=== PATIENT | male | born 1995 | race African-American/Black ===

== ENCOUNTER 2018-12-12 11:40 | Inpatient (IN) | payer MEDICAID ==
[~2018-12-12] VITALS: Ht 177.8 cm; Wt 60.3 kg
--- NOTE | 2018-12-12 12:00 | NUR ---
The patient is reluctant to be seen by the ED provider; the patient's brother wants him to be seen by the ED physician.
--- NOTE | 2018-12-12 12:38 | NUR ---
the patient and his brother are talking to each other
--- NOTE | 2018-12-12 12:53 | NUR ---
MD AT BEDSIDE. ROOM MATE BROUGHT PATIENT IN. LONG HISTORY OF POSSIBLE MENTAL DISORDER, RECENT REFUSAL TO EAT AND WEIGHT LOSS AND PER ROOM MATE SINCE THE LAST 3-4 DAYS HE HAS STOPPED TALKING MOSTLY, WILL INTERMITTENTLY FOLLOW COMMANDS, VERY FIDGITY, AWOL RISK.
[2018-12-12] MEDS ORDERED: OLANZAPINE 10 MG VIAL IM ONE ×2 (12:56→13:00)
[2018-12-12] MEDS ORDERED: LORAZEPAM INJ 2 MG/ML VIAL ONE (12:57)
[2018-12-12] MEDS ORDERED: LORAZEPAM INJ 2 MG/ML VIAL IM ONE (13:00)
--- NOTE | 2018-12-12 13:00 | NUR ---
PATIENT ABLE TO TELL ME HIS NAME, , AND THAT HE IS IN THE HOSPITAL. AWARE HIS FRIEND IS AT BEDSIDE BUT UNABLE TO TELL ME HIS NAME. PATIENT COOPERATIVE AND INTERMITTENTLY RESPONDS. FOLLOWS SIMPLE COMMANDS OF REQUESTS TO BLINK, SQUEEZE HANDS AND MOVE EXTREMITIES
--- NOTE | 2018-12-12 13:00 | NUR ---
PATIENT AGREEABLE TO HAVE ZYPREZA AND ATIVAN GIVEN. SECURITY AT BEDSIDE FOR ASSISTANCE
[2018-12-12 13:23] LABS: BASOPHILS % (AUTO) 0.5 % (0.0-2.0); HEMATOCRIT 46 % (39-51); HEMOGLOBIN 15.2 g/dL (13.5-17.5); LYMPHOCYTES % (AUTO) 15.3 % (20.0-44.0); MEAN CORPUSCULAR HGB CONC 33 g/dl (31.0-36.0); MEAN CORPUSCULAR VOLUME 91 fL (80-96); MONOCYTES # (AUTO) 0.8 /CMM (0.1-1.30); MONOCYTES % (AUTO) 12.4 % (2.0-12.0); NEUTROPHILS # (AUTO) 4.5 /CMM (1.8-8.9); NEUTROPHILS % (AUTO) 71.8 % (43.0-81.0); PLATELET COUNT (AUTO) 213 /CMM (150-450); RED BLOOD CELL COUNT(AUTO) 5.02 MIL/uL (4.5-6.0); WHITE BLOOD COUNT (AUTO) 6.3 K/uL (4.3-11.0)
--- NOTE | 2018-12-12 13:25 | NUR ---
PATIENT TAKEN TO CT
[2018-12-12 13:28] LABS: CALCIUM, SERUM 10.1 mg/dL (8.5-10.1); CARBON DIOXIDE 22 mmol/L (21-32); CHLORIDE 100 mmol/L (98-107); CREATININE 1.2 mg/dL (0.6-1.3); GLUCOSE 77 mg/dL (74-106); POTASSIUM 4.5 mmol/L (3.5-5.1); SODIUM SERUM 141 mmol/L (136-145); UREA NITROGEN, BLOOD 15 mg/dL (7-18)
--- NOTE | 2018-12-12 13:30 | NUR ---
PATIENT RETURNED FROM CT SCAN. CALM AND COOPERATIVE. VSS. RESTING
[2018-12-12 13:34] LABS: ACETAMINOPHEN 0 ug/ml (10-30); ALANINE AMINOTRANSFERASE 41 U/L (12-78); ALBUMIN 5.2 g/dL (3.4-5.0); ALCOHOL, BLOOD < 3 mg/dL (0-0); ALKALINE PHOSPHATASE 44 U/L (46-116); ASPARTATE AMINOTRANSFERASE 64 U/L (15-37); BILIRUBIN,DIRECT 0.3 mg/dL (0.0-0.2); BILIRUBIN,TOTAL 1.3 mg/dL (0.2-1.0); SALICYLATE 3.6 mg/dL (2.8-20.0)
--- NOTE | 2018-12-12 14:16 | NUR ---
FRIEND AT BEDSIDE -DOMI SAINI [phone] FATHER AMAURI HIGGINBOTHAM [phone]
--- NOTE | 2018-12-12 15:21 | NUR ---
PATIENT COMPLIANT AND PROVIDED URINE SAMPLE
[2018-12-12 15:33] LABS: APPEARANCE,URINE Clear (CLEAR); BILIRUBIN,URINE MODERATE (NEGATIVE); BLOOD, URINE Trace-intact Ery/uL (NEGATIVE); COLOR,URINE Yellow (YELLOW); KETONES,URINE >=160 (NEGATIVE); LEUKOCYTE ESTERASE ,URINE Negative (NEGATIVE); NITRITE, URINE Negative (NEGATIVE); PROTEIN,URINE 30 mg/dl (NEGATIVE); UGLUCOSE Negative (NEGATIVE)
[2018-12-12 15:39] LABS: BACTERIA,URINE None seen /HPF (None Seen); RBC,URINE 0-2 /HPF (0-2); SQUAMOUS EPITHELIAL CELL,UR Few /HPF (None Seen); WBC,URINE 0-2 /HPF (0-3)
--- NOTE | 2018-12-12 16:20 | NUR ---
per patient ok to speak with parents gail. [phone]
--- NOTE | 2018-12-12 18:34 | NUR ---
PATIENT RESTING COMFORTABLY. NO CHANGE IN MENTATION. SLOW TO RESPOND
--- NOTE | 2018-12-12 20:00 | NUR ---
Patient is resting comfortably in bed with eyes closed. Easily aroused. VSS.
--- NOTE | 2018-12-12 21:12 | NUR ---
CALLED [facility] FOR EVAL [phone], UNABLE TO LEAVE AT THIS TIME. WILL FOLLOW UP.
--- NOTE | 2018-12-12 21:34 | NUR ---
PAGED DR RAMOS SECOND TIME
--- NOTE | 2018-12-12 23:05 | NUR ---
ART WAIT STAFF CALLED, WILL COME
--- NOTE | 2018-12-12 23:20 | NUR ---
ART, TRAVELING SALES REPRESENTATIVE AT BEDSIDE
--- NOTE | 2018-12-13 00:22 | NUR ---
ROOMMATES AT BEDSIDE
--- NOTE | 2018-12-13 01:08 | NUR ---
CALLED [facility] FOR PANEL ADMISSION, DR. CHIQUIS SEARS, WAITING FOR CALL BACK.
--- NOTE | 2018-12-13 01:25 | NUR ---
CALLED RN SUP FOR TELE BED
--- NOTE | 2018-12-13 01:29 | NUR ---
FRANKIE PATRICIO SPOKE TO DR. SIM REGARDING PLAN OF CARE/ ADMISSION
[2018-12-13] MEDS ORDERED: IV NS 0.9% 1,000 ML BAG IV ONE (01:30)
--- NOTE | 2018-12-13 01:58 | NUR ---
PT ASSIGNED TO 320-1
[2018-12-13] MEDS ORDERED: MAG HYDROX/AL HYDROX/SIMETH 30 ML UDC PO PRN (02:00)
[2018-12-13] MEDS ORDERED: ONDANSETRON HCL/PF 4 MG/2 ML VIAL IVP PRN (02:00)
[2018-12-13] MEDS ORDERED: ACETAMINOPHEN 325 MG TABLET PO PRN (02:00)
[2018-12-13] MEDS ORDERED: MAGNESIUM HYDROXIDE 30 ML UDC PO PRN (02:00)
--- NOTE | 2018-12-13 02:09 | NUR ---
REPORT GIVEN TO MARCIAL BURKETT FOR LYNN
[2018-12-13 03:15] VITALS: BP 144/79
[2018-12-13 03:25] VITALS: BP 144/79
--- NOTE | 2018-12-13 03:25 | NUR ---
RN MS ADMITTING OPENING NOTES RECEIVED PATIENT FROM ER VIA GURNEY SAFELY TRANSFERRED TO BED, AWAKE ALERT AND ORIENTED X3, ABLE TO MAKE SIMPLE NEEDS KNOWN, NOTED WITH DELAYED SPEECH, RESPIRATIONS EVEN AND UNLABORED WITH EQUAL RISE AND FALL OF CHEST, VERONICA ANY PAIN OR DISCOMFORT AT THIS TIME, IV SITE TO LEFT FA #20 G INTACT AND PATENT, NO REDNESS, NO INFILTRATION , BODY ASSESSMENT DONE SKIN INTACT, BELONGINGS DONE, PATIENT HAS PHONE AND NUTRIENT MANAGEMENT SPECIALIST WIRE HOWEVER DID NOT RECEIVED WITH CHARGING CONNECTIN BOX, PATIENT DECIDE TO KEEP WALLET AT BEDSIDE WITH REST OF BELONGINGS, FLUIDS OFFERED, TOILETING OFFERED , URINAL AT BEDSIDE AND ORIENTED , ORIENTED TO STAFF AND CALL LIGHT AND KEPT WITHIN REACH,SAFETY PRECAUTIONS IN PLACE, LOW BED AND LOCKED, BED ALARM IN PLACE FOR AMS. ALL NEEDS ATTENDED WILL CONTINUE TO MONITOR AND ATTEND TO NEEDS, WILL FOLLOW MD ORDERS.
--- NOTE | 2018-12-13 06:15 | NUR ---
RN MS CLOSING NOTES PATIENT IN BED,SLEEPING BUT EASILY AROUSABLE, AWAKE ALERT AND ORIENTED X3, ABLE TO MAKE SIMPLE NEEDS KNOWN, NOTED WITH DELAYED SPEECH, RESPIRATIONS EVEN AND UNLABORED WITH EQUAL RISE AND FALL OF CHEST, VERONICA ANY PAIN OR DISCOMFORT AT THIS TIME, IV SITE TO LEFT FA #20 G INTACT AND PATENT, NO REDNESS, NO INFILTRATION , FLUIDS OFFERED, TOILETING OFFERED , URINAL REMAINS BEDSIDE , CALL LIGHT KEPT WITHIN REACH,SAFETY PRECAUTIONS IN PLACE, LOW BED AND LOCKED, BED ALARM IN PLACE FOR AMS. ALL NEEDS ATTENDED WILL CONTINUE TO MONITOR AND ATTEND TO NEEDS, WILL ENDORSE TO NEXT SHIFT.
[2018-12-13 08:00] VITALS: BP 135/62
[2018-12-13 08:39] VITALS: BP 135/62
[2018-12-13] MEDS: PANTOPRAZOLE 40 MG TABLET.DR PO SCH (08:52)
--- NOTE | 2018-12-13 11:00 | NUR ---
PATIENT RESTING IN ROOM . DENIES ANY PAIN OR DISCOMFORT AT THIS TIME, NO SOB OR CHEST PAIN . ON ROOM AIR TOLERATING WELL. DENIES ANY SUICIDAL THOUGHTS AT THIS TIME
--- NOTE | 2018-12-13 11:20 | NUR ---
Psych consult at bedside by Dr. Guerra
--- NOTE | 2018-12-13 11:45 | NUR ---
Social service consult requested by MARCOS Ruiz for possible drug overdose. Pt. is a 23 year old male who was admitted to [facility] for altered mental status and possible drug overdose. Pt. was brought in by his roommates. SW met with pt. bedside. Pt. is alert and oriented x 4. Pt. displays a subdued mood and is soft spoken but engaging in conversation with SW. Pt. states he lives with roommates at [address] in [place]. Per H&P notes, his roommates had found white powder on his bed and on the floor. SW asked about the white substance, but pt.pretended like he did not know what it was. Pt. states he uses THC on a daily basis. Pt. was evaluated by marine diesel technician Art who stated in his report heidy tpt. has been going to Cocaine and Crack parties recently and has not been himself for the past four days. Pt. has lost a lot of weight. However, Pt. is denying drug and alcohol use and not upfront about his drug use. Pt's family is coming from [place] to visit him. Pt. currently works for a [employer]. Pt. states he has Depression and Anxiety, however is not taking any medications. Pt. denies any suicidal and homicidal ideations at this time. Pt. does not have a psychiatrist. [facility]OT gave pt. the following mental health resources: [facility] [address], [address]nd [place] [address] Main Number: [facility] [address] [place] [address] HOURS: Mon-Fri 8am--7pm Saturdays 9am--5:30pm [facility] [place], [place] [id number] No other social service needs are requested at this time. SW is available, if needed.
[2018-12-13 16:03] VITALS: BP 141/88
--- NOTE | 2018-12-13 19:15 | NUR ---
MS RN OPENING NOTES: RECEIVED PATIENT SITTING AT THE EDGE OF THE BED,CALM. NO COMPLAIN OF PAIN. CALL LIGHT WITHIN REACH. PATIENT IS ALERT AND ORIENTED X4.
--- NOTE | 2018-12-13 19:33 | NUR ---
PATIENT RESTING IN ROOM, A/O X 3. SPEECH REMAINS DELAYED. VS ARE MARISOL ON ROOM AIR. AWAITING FOR PARENTS FOR D/C . POSSIBLE D/C TONIGHT OR TOMORROW . WILL ENDORSE TO NEXT SHIFT FOR LYNN.
[2018-12-13 20:00] VITALS: BP 141/90
--- NOTE | 2018-12-14 02:30 | NUR ---
YOSELIN GIBBS REPORTED THAT 2 ROOMMATES OF THE PATIENT TOOK THE PATIENT'S BLACK BACKPACK EARLIER, CN PANDA AWARE.
--- NOTE | 2018-12-14 06:00 | NUR ---
MS RN CLOSING NOTES: PATIENT JUST HAD SHOWER ACCORDING TO THE SCREEN TENDER. PATIENT IS SITTING AT THE EDGE OF THE BED. NO COMPLAIN OF PAIN. PATIENT IS QUIET AND CALM MOST OF THE TIME. AFEBRILE. NO ACUTE EVENTS OVERNIGHT.STILL WAITING FOR THE PARENTS TO COME. D/C PACKET ALREADY PREPARED AND NEED TO BE SIGNED BY PATIENT, ENDORSED TO THE NEXT SHIFT RN.
[2018-12-14 07:25] LABS: BASOPHILS % (AUTO) 0.9 % (0.0-2.0); EOSINOPHILS % (AUTO) 0.5 % (0.0-6.0); HEMATOCRIT 48 % (39-51); HEMOGLOBIN 15.7 g/dL (13.5-17.5); LYMPHOCYTES % (AUTO) 23.3 % (20.0-44.0); MEAN CORPUSCULAR HGB CONC 33 g/dl (31.0-36.0); MEAN CORPUSCULAR VOLUME 90 fL (80-96); MONOCYTES # (AUTO) 0.6 /CMM (0.1-1.30); MONOCYTES % (AUTO) 14.7 % (2.0-12.0); NEUTROPHILS # (AUTO) 2.6 /CMM (1.8-8.9); NEUTROPHILS % (AUTO) 60.6 % (43.0-81.0); PLATELET COUNT (AUTO) 230 /CMM (150-450); RED BLOOD CELL COUNT(AUTO) 5.33 MIL/uL (4.5-6.0); WHITE BLOOD COUNT (AUTO) 4.3 K/uL (4.3-11.0)
--- NOTE | 2018-12-14 07:30 | NUR ---
m/s back joiner: initial assessment received pt in bed awake, a/o4. denies si/hi at this time. pt for d'c home today, awaiting for family from [place] to pick him up per report. pt has no iv/hl at this time. no c/o pain or any discomfort. breakfast served. instructed to call for assistance. will monitor.
[2018-12-14 07:44] LABS: CALCIUM, SERUM 9.2 mg/dL (8.5-10.1); MAGNESIUM 2.1 mg/dL (1.8-2.4); PHOSPHORUS 3.8 mg/dL (2.5-4.9); POTASSIUM 3.4 mmol/L (3.5-5.1)
[2018-12-14 07:47] LABS: THYROID STIMULATING HORMONE 2.687 uIU/mL (0.358-3.74)
[2018-12-14 08:00] VITALS: BP 143/87
[2018-12-14 08:07] VITALS: BP 143/87
[2018-12-14] MEDS: PANTOPRAZOLE 40 MG TABLET.DR PO SCH (08:29)
--- NOTE | 2018-12-14 09:00 | NUR ---
m/s merchandising consultant: md visit seen by katie (acnp) at this time. pt for discharge today, still awaiting for family from [place]. pt stable for discharge per katie. will continue to monitor.
--- NOTE | 2018-12-14 09:30 | NUR ---
m/s canvas cutter hand: notes place a call to michael (father), spoke to him over the phone and on the way here as stated.
--- NOTE | 2018-12-14 10:30 | NUR ---
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 pt given permission to give discharge instructions in front of family. pt verbalized understanding. all resources given by clinical social work therapist with pt. father very supportive and plan to fly him to [place] and get him help as stated. all d'c papers copy given to father. pt getting ready for discharge. needs attended.
--- NOTE | 2018-12-14 10:45 | NUR ---
m/s freight router: discharged discharged home in stable condition accompanied by father and brother with all valuables.
[2018-12-14] MEDS ORDERED: POTASSIUM CHLORIDE 20 MEQ TAB.PRT.SR PO SCH (12:00)
--- NOTE | 2018-12-14 12:03 | NUR ---
Received consult for we loss 25-30 lbs recent 3 months. Visited pt today. Pt reports this weight loss was due to stress. Pt currently on regular diet with 75, 25, 25 % po intake so far. Pt reports he still does not have much appetite. Noted A1C still pending, elevated LFt's. Provided diet education on high calorie/high protein diet to pt with handouts. Pt verbalized understanding. Noted MD order to discharge pt on 12/13/18 and pt has been discharged today.
== END 2018-12-14 10:35 | disposition home or self-care (01) | DRG 422 ==
LOC: ER 11:40 → TELE 12-13 02:28 → MED 12-13 06:53
PROVIDERS: ADMIT Registered Nurse; ATTEND Registered Nurse
DX: E86.0 Dehydration (principal); F20.9 Schizophrenia, unspecified; F32.9 Major depressive disorder, single episode, unspecified; R17 Unspecified jaundice; Z88.2 Allergy status to sulfonamides; R74.0 Nonspecific elevation of levels of transaminase and lactic acid dehydrogenase [LDH]; F19.159 Other psychoactive substance abuse with psychoactive substance-induced psychotic disorder, unspecified
CPT/HCPCS: 36415; 70450-TC; 80048-TC; 80061-TC; 80076-TC; 80305; 81000-TC; 83735-TC; 84100-TC; 84443-TC; 85025-TC; 87081-TC; G0378; G0480; J2060; J3490; J7030